=== PATIENT | female | born 1980 | race African-American/Black ===

== ENCOUNTER → 2019-07-18 11:08 | Outpatient (CLI) | payer BC, SELFPAY ==
[2019-07-18 12:23] LABS: HCG Quantitative /Beta subunit < 2.39 mIU/mL
== END ==
DX: N91.2 Amenorrhea, unspecified (principal)
CPT/HCPCS: 36415; 84702

== ENCOUNTER → 2019-08-30 13:53 | Outpatient (CLI) | payer BC, SELFPAY ==
[2019-08-30 15:08] LABS: Add Manual Diff / Slide Review NO; Basophils Absolute Auto 0 /uL (0-100); Basophils Percent Auto 0.5 % (0-2); Eosinophils Absolute Auto 100 /uL (0-450); Eosinophils Percent Auto 1.2 % (2-4); Hematocrit 38.7 % (36-46); Hemoglobin 12.8 g/dL (12.0-16.0); Lymphocytes Absolute Auto 1500 /uL (1100-4500); Lymphocytes Percent Auto 22.1 % (25-40); Mean Corpuscular Hemoglobin 27.3 PG (26-34); Mean Corpuscular Volume 82.7 fL (80-100); Monocytes Absolute Auto 400 /uL (0-900); Monocytes Percent Auto 5.5 % (3-14); Neutrophils Absolute Auto 4900 /uL (1500-7000); Neutrophils Percent Auto 70.7 % (50-75); Platelet Count 227 X10^3/uL (150-400); Red Blood Cell Count 4.68 X10^6/uL (4.0-5.2)
[2019-08-30 15:28] LABS: Alanine Aminotransferase 17 IU/L (<35); Albumin 4.3 g/dL (3.5-5.0); Albumin Globulin Ratio 1.4 (1.0-2.8); Alkaline Phosphatase 54 U/L (38-126); Aspartate Aminotransferase 19 IU/L (14-36); BUN Creatinine Ratio 18.3 (6-22); Bilirubin Total 0.5 mg/dL (0.2-1.3); Blood Urea Nitrogen 11 mg/dL (7-17); Calcium 9.3 mg/dL (8.4-10.2); Carbon Dioxide 21 mmol/L (22-32); Chloride 104 mmol/L (98-107); Estimated Glomerular Filt Rate > 60.0 mL/min (>60); Globulin 3.1 g/dL (1.7-4.1); Glucose 123 mg/dL (70-100); HEMOLYSIS < 15 (0-50); Sodium 137 mmol/L (137-145); Total Protein 7.4 g/dL (6.3-8.2)
[2019-08-30 16:34] LABS: Folate 5.1 ng/mL (2.76-20.0); Vitamin B12 345 pg/mL (239-931)
== END ==
DX: D50.9 Iron deficiency anemia, unspecified (principal)
CPT/HCPCS: 36415; 80053; 82607; 82746; 85025

== ENCOUNTER → 2019-10-20 11:52 | Outpatient (CLI) | payer BC, SELFPAY ==
[2019-10-20 13:13] LABS: HCG Quantitative /Beta subunit 133740 mIU/mL
== END ==
DX: Z32.01 Encounter for pregnancy test, result positive (principal); R82.90 Unspecified abnormal findings in urine
CPT/HCPCS: 36415; 84702; 87077; 87086; 87186

== ENCOUNTER → 2019-10-27 12:32 | Outpatient (CLI) | payer BC, SELFPAY ==
[2019-10-27 13:43] LABS: Add Manual Diff / Slide Review NO; Basophils Absolute Auto 0 /uL (0-100); Basophils Percent Auto 0.3 % (0-2); Eosinophils Absolute Auto 100 /uL (0-450); Eosinophils Percent Auto 0.5 % (2-4); Hematocrit 38.4 % (36-46); Hemoglobin 12.8 g/dL (12.0-16.0); Lymphocytes Absolute Auto 1300 /uL (1100-4500); Lymphocytes Percent Auto 14.2 % (25-40); Mean Corpuscular HGB Conc 33.4 % (30-36); Mean Corpuscular Hemoglobin 28.5 PG (26-34); Mean Corpuscular Volume 85.3 fL (80-100); Monocytes Absolute Auto 500 /uL (0-900); Monocytes Percent Auto 5.7 % (3-14); Neutrophils Absolute Auto 7300 /uL (1500-7000); Neutrophils Percent Auto 79.3 % (50-75); Platelet Count 183 X10^3/uL (150-400); Red Cell Distribution Width 14.6 % (11.6-14.8); White Blood Cell Count 9.2 X10^3/uL (4.5-11.0)
[2019-10-27 14:22] LABS: Hemoglobin A1C% w Est Avg Glu 5.3 % (4.0-6.0)
[2019-10-27 16:49] LABS: Hepatitis B Surface Antigen NEGATIVE s/c (NEGATIVE); Rubella Antibody IgG 10.8 IU/mL (>15)
[2019-10-27 17:05] LABS: HIV 1 & 2 Ab/Ag 4th Gen Combo NEGATIVE (NEGATIVE); Hep C Virus Ab w/Reflex Quant NEGATIVE s/c (NEGATIVE)
[2019-10-28 10:09] LABS: RPR Screen Non Reactive (Non Reactive); Varicella IgG Antibody 1736 index (Immune >165)
== END ==
DX: Z34.82 Encounter for supervision of other normal pregnancy, second trimester (principal)
CPT/HCPCS: 36415; 80055; 83036; 86787; 86803; 86850; 86900; 86901; 87389

== ENCOUNTER → 2019-11-18 10:39 | Outpatient (CLI) | payer BC, SELFPAY ==
[2019-11-18 11:17] LABS: Appearance Urine UA CLEAR; Bilirubin Urine UA NEGATIVE (NEGATIVE); Color Urine UA YELLOW; Glucose Urine UA NEGATIVE (Negative); Ketones Urine UA 2+ (NEGATIVE); Leukocyte Esterase Urine UA NEGATIVE (NEGATIVE); Nitrite Urine UA NEGATIVE (Negative); Occult Blood Urine UA TRACE-LYSED (Negative); Protein Urine UA 1+ (Negative); Specific Gravity Urine UA >=1.030 (1.000-1.035)
[2019-11-21 14:08] LABS: AFP, Serum 28.5 ng/mL (.); Estriol, Free 0.95 ng/mL (.); Inhibin A, Dimeric 128.01 pg/mL (.); Inhibin A, MoM 1.07 (.); Maternal Ethnicity Black (.); Maternal Weight 267 lbs (.); Number of Fetuses No (.); OSBR Risk 1 IN 10000 (.); Results Report (.); Test Results *Screen Negative* (.); hCG, MoM 1.61 (.); hCG, Serum 37078 mIU/mL (.)
== END ==
DX: O09.529 Supervision of elderly multigravida, unspecified trimester (principal); Z3A.17 17 weeks gestation of pregnancy
CPT/HCPCS: 36415; 81003; 82105; 82677; 84702; 86336; 87086

== ENCOUNTER → 2019-12-16 06:51 | Outpatient (CLI) | payer BC, SELFPAY ==
--- NOTE | 2019-12-16 06:52 | DI.US.S_ITS ---
PROCEDURE: US OB >= 14 WEEKS FETUS INDICATIONS: ANATOMY OUTSIDE/PRIOR DATING DATA: Last menstrual period (LMP): 07/20/19. LMP-based estimated date of delivery (LUIS): 04/26/20. First dating scan (date and location): 10/27/19. Estimated date of delivery (LUIS) from first dating scan: 04/23/20. TECHNIQUE: Real-time scanning was performed of the fetus, with image documentation and biometric measurements. Endovaginal scanning: Not performed COMPARISON: [employer] [facility] [employer] [facility], , US PELVIC COMPLETE, 05/06/2019, 11:04. [employer] [facility], , OB >= 14 WEEKS FETUS, 10/27/2019, 12:16. FINDINGS: General: A single living intrauterine gestation is present. Presentation: Transverse/head maternal left. Placenta: Placental position is fundal, without previa. Amniotic fluid index: 16.2 cm, normal range is 5-24 cm. heart rate: 136 beats per minute. Maternal cervical canal: 4.2 cm long. Normal lower limit is 2.5 cm. biometrics: Biparietal diameter: 5.0 cm, 21 weeks one day Head circumference: 19.6 cm, 21 weeks 6 days Abdominal circumference: 16.7 cm, 21 weeks 5 days Femur length: 3.9 cm, 22 weeks 5 days Estimated gestational age from initial scan: 21 weeks 4 days Composite gestational age from present scan: 21 weeks 6 days Estimated weight and percentile: 475 g, 72nd percentile Measurement variability for biometric dating: +/- 7 days from 14 weeks to 15 weeks 6 days gestation, +/- 10 days from 16 weeks to 21 weeks 6 days gestation, +/- 2 weeks from 22 weeks to 27 weeks 6 days gestation, +/- 3 weeks for 28 weeks gestation or later. weight reference: 4500 g or EFW >90/95% is considered macrosomia or large for gestational age. EFW <10% is small for gestational age. EFW 5% or less is considered intra-uterine growth restriction. Anatomic survey: Neuro: Ventricles are non-dilated at less than 10 mm. Cisterna magna is normal at 3-11 mm. Cerebellum is normal in size and morphology. Nuchal skin fold: Normal at less than 6 mm between 14-21 weeks gestational age. Face: Nose and lips, facial profile are normal. Spine: No evidence for spina bifida. Heart: 4-chambered heart is present, with normal ventricular outflow tracts. Diaphragm: Diaphragm is intact. Stomach: Left-sided stomach is present. Kidneys: No hydronephrosis. Normal is less than 5 mm in 2nd trimester, less than 7 mm in 3rd trimester. Cord: 3-vessel cord has orthotopic insertion. Bladder: Normal in size. Extremities: All 4 extremities identified. IMPRESSION: Single living intrauterine fetus in transverse presentation.Expected interval growth heart and ventricular outflow tracts are not well seen. facial profile also not well-visualized due to gestational position. Recommend followup Elsewhere, normal anatomic survey Dictated by: Akil Holbrook M.D. on 12/16/2019 at 10:04 Approved by: Akil Holbrook M.D. on 12/16/2019 at 10:08
== END ==
DX: Z34.82 Encounter for supervision of other normal pregnancy, second trimester (principal); Z3A.21 21 weeks gestation of pregnancy
CPT/HCPCS: 76811